=== PATIENT | male | born 1980 | race Two or more races ===

== ENCOUNTER 2022-12-26 11:23 | Emergency (ER) | payer SELFPAY ==
[2022-12-26] MEDS ORDERED: Sodium Chloride 0.9% 1,000 ML IV ONE (12:07)
[2022-12-26] MEDS ORDERED: Ketorolac 30 MG/ML SDV IVPUSH ONE (12:07)
[2022-12-26 12:44] LABS: BASOPHILS PERCENT AUTO 0.3 % (0.0-1.5); EOSINOPHILS ABSOLUTE AUTO 0.2 K/uL (0.0-0.7); EOSINOPHILS PERCENT AUTO 3.1 % (0.0-7.0); HEMATOCRIT 48.2 % (38.0-50.0); HEMOGLOBIN 16.4 g/dL (13.0-17.0); LYMPHOCYTES ABSOLUTE AUTO 2.2 K/uL (0.6-2.4); LYMPHOCYTES PERCENT AUTO 35.1 % (16.0-40.0); MEAN CORPUSCULAR HEMOGLOBIN 31.2 pg (27.0-32.0); MEAN CORPUSCULAR VOLUME 91.6 fL (80.0-98.0); MONOCYTES ABSOLUTE AUTO 0.7 K/uL (0.0-0.8); MONOCYTES PERCENT AUTO 11.1 % (0.0-15.0); NEUTROPHILS ABSOLUTE AUTO 3.1 K/uL (1.4-5.7); NEUTROPHILS PERCENT AUTO 50.4 % (48.0-80.0); NRBC ABSOLUTE 0 K/uL; PLATELET COUNT,PLT 250 K/uL (150-400); RED BLOOD CELL COUNT 5.26 M/uL (4.50-5.90); WHITE BLOOD CELL COUNT,WBC 6.13 K/uL (4.0-11.0)
[2022-12-26 13:03] LABS: APPEARANCE,URINE CLEAR; BILIRUBIN,URINE NEGATIVE (NEGATIVE); COLOR,URINE YELLOW; GLUCOSE,URINE NEGATIVE (NEGATIVE); KETONES,URINE NEGATIVE (NEGATIVE); LEUKOCYTE ESTERASE,URINE NEGATIVE (NEGATIVE); NITRITE,URINE NEGATIVE (NEGATIVE); OCCULT BLOOD,URINE NEGATIVE (NEGATIVE); PH,URINE 5.5 (5.0-8.0); PROTEIN,URINE NEGATIVE (NEGATIVE); UROBILINOGEN,URINE 0.2 EU/dL (<2.0)
[2022-12-26 13:11] LABS: A/G RATIO 1.1 (0.9-1.6); ALBUMIN 4.1 g/dL (3.4-5.0); BILIRUBIN TOTAL 0.5 mg/dL (0.2-1.0); CALCIUM 8.8 mg/dL (8.5-10.1); CARBON DIOXIDE,CO2 27.5 mmol/L (21.0-32.0); EST CRCL DRUG DOSING (CG) 94.27 mL/min; POTASSIUM,K 4.4 mmol/L (3.5-5.1); PROTEIN TOTAL,TP 7.7 g/dL (6.4-8.2)
[2022-12-26] MEDS ORDERED: Iopamidol 755 MG/ML 500 ML Multipack Bottle IVPUSH STA (14:23)
== END 2022-12-26 15:43 | disposition home or self-care (01) ==
LOC: MW.ED 11:23
DX: K40.20 Bilateral inguinal hernia, without obstruction or gangrene, not specified as recurrent (principal)
CPT/HCPCS: 36415; 74177; 80053; 81003; 85025; 96361; 96374; 99284; J1885; J7030; Q9967

== ENCOUNTER 2023-01-07 06:25 | Day surgery (SDC) | payer OTHER ==
[~2023-01-07 06:25] MED LIST: Lactated Ringers 1,000 ML IV SCH; ceFAZolin 2 GM in Sodium Chloride 0.9% 50 ML IV ONE
[2023-01-07] MEDS ORDERED: fentaNYL 50 MCG/ML SDV IVPUSH PRN (07:09)
[2023-01-07] MEDS ORDERED: Metoclopramide 10 MG/2 ML SDV IVPUSH PRN (07:09)
[2023-01-07] MEDS ORDERED: Naloxone 0.4 MG/ML SDV IVPUSH PRN (07:09)
[2023-01-07] MEDS ORDERED: droPERidol 5 MG/2 ML SDV IVPUSH PRN (07:09)
[2023-01-07] MEDS ORDERED: Albuterol 0.083% 2.5 MG/3 ML Neb Soln NEB PRN (07:09)
[2023-01-07] MEDS ORDERED: Ondansetron 4 MG/2 ML SDV IVPUSH PRN (07:09)
[2023-01-07] MEDS ORDERED: Morphine 2 MG/ML SYRINGE IVPUSH PRN (07:09)
[2023-01-07] MEDS ORDERED: HYDROmorphone 1 MG/ML Syringe IVPUSH PRN (07:09)
[2023-01-07] MEDS ORDERED: Bupivacaine 0.5% 30 ML SDV ONE (07:17)
[2023-01-07] MEDS ORDERED: ceFAZolin 1 GM Vial ONE (07:17)
[2023-01-07] MEDS ORDERED: Propofol 200 MG/20 ML SDV ONE (07:37)
[2023-01-07] MEDS ORDERED: Ropivacaine 0.5% 5 MG/ML 30 ML SDV ONE (07:37)
[2023-01-07] MEDS ORDERED: Morphine 10 MG/ML SDV ONE (07:38)
[2023-01-07] MEDS ORDERED: fentaNYL 250 MCG/5 ML SDV ONE (07:38)
[2023-01-07] MEDS ORDERED: Dexamethasone 4 MG/ML 5 ML MDV ONE (07:42)
[2023-01-07] MEDS ORDERED: Ondansetron 4 MG/2 ML SDV ONE (07:42)
[2023-01-07] MEDS ORDERED: Sugammadex Sodium 200 MG/2 ML VIAL ONE (09:11)
[2023-01-07] MEDS ORDERED: Morphine 4 MG/ML Syringe IVPUSH PRN (10:07)
[2023-01-07] MEDS ORDERED: Acetaminophen/HYDROcodone 325-5 MG Tab PO PRN (10:07)
[2023-01-07] MEDS ORDERED: Lactated Ringers 1,000 ML IV SCH (10:15)
[2023-01-07] MEDS ORDERED: Acetaminophen/HYDROcodone 325-5 MG Tab PO ONE (12:01)
== END 2023-01-07 12:25 | disposition home or self-care (01) ==
LOC: MW.SDS 06:25
PROVIDERS: ATTEND Surgery
DX: K40.90 Unilateral inguinal hernia, without obstruction or gangrene, not specified as recurrent (principal)
CPT/HCPCS: 49505; 64486; A9270; J0131; J0690; J1100; J2270; J2405; J2704; J2795; J3010; J3490; J7120; C1781